=== PATIENT | male | born 1965 | race Caucasian/White ===

== ENCOUNTER 2018-06-02 18:44 | Emergency (ER) | payer OTHER ==
--- NOTE | 2018-06-02 19:23 | PDOC ---
Rapid Medical Evaluation Chief Complaint: Burn Time Seen by Provider: 06/02/18 19:21 Medical Evaluation: Allergies Allergy/AdvReac Type Severity Reaction Status Date / Time No Known Allergies Allergy Verified 01/18/15 09:09 06/02/18 19:21 Pt presents for a burn to R wrist which happened yesterday. Pt placed Silvadine on the wound. Is requesting the area be cleaned. No history of diabetes. Exam: Raw skin to R wrist approximately the size of a silver dollar; most likely corresponding with a second degree burn Orders: Nothing Pt to proceed to the ED for further evaluation Discharge Disposition - Diagnosis Burn - Referrals Referrals: Santo Juarez MD [Primary Care Provider] - - Patient Instructions - Post Discharge Activity
[2018-06-02 19:25] VITALS: BP 162/84; PULSE 76; TEMP 97.6; BMI 28.7
--- NOTE | 2018-06-02 20:16 | PDOC ---
History of Present Illness - General Chief Complaint: Burn Stated Complaint: BURN HAND Time Seen by Provider: 06/02/18 19:21 - History of Present Illness Initial Comments: 06/02/18 20:11 53-year-old male resents requesting clean and debridement of a burn on his right wrist which occurred yesterday he brings his own Silvadene. Past History - Past Medical History Allergies/Adverse Reactions: Allergies Allergy/AdvReac Type Severity Reaction Status Date / Time No Known Allergies Allergy Verified 06/02/18 19:26 Home Medications: Ambulatory Orders Aspirin 81 mg PO ASDIR 06/02/18 Atorvastatin Ca [Lipitor] 40 mg PO HS 06/02/18 Hydrochlorothiazide 12.5 mg PO ASDIR 06/02/18 Metoprolol Succinate 25 mg PO ASDIR 06/02/18 Cardiac Disorders: Yes COPD: No HTN: Yes Hypercholesterolemia: Yes - Suicide/Smoking/Psychosocial Hx Smoking History: Current every day smoker Have you smoked in the past 12 months: Yes Number of Cigarettes Smoked Daily: 20 Information on smoking cessation initiated: No Hx Alcohol Use: No Drug/Substance Use Hx: No Review of Systems - Review of Systems Integumentary: Yes: See HPI *Physical Exam - Vital Signs Last Vital Signs Temp Pulse Resp BP Pulse Ox 97.6 F 76 18 162/84 98 06/02/18 19:23 06/02/18 19:23 06/02/18 19:23 06/02/18 19:23 06/02/18 19:23 - Physical Exam Comments: 06/02/18 20:17 Right hand has second-degree villatoro about the dorsum of the wrist no eschar has been formed no indication of secondary infection Moderate Sedation - Procedure Monitoring Vital Signs: Procedure Monitoring Vital Signs Temperature 97.6 F 06/02/18 19:23 Pulse Rate 76 06/02/18 19:23 Respiratory Rate 18 06/02/18 19:23 Blood Pressure 162/84 06/02/18 19:23 O2 Sat by Pulse Oximetry (%) 98 06/02/18 19:23 Medical Decision Making - Medical Decision Making 06/02/18 20:17 Villatoro were cleaned with chlorhexidine Silvadene was applied as well as dry sterile dressing *DC/Admit/Observation/Transfer Diagnosis at time of Disposition: Burn, Encounter for wound care - Discharge Dispostion Disposition: HOME Condition at time of disposition: Stable Decision to Admit order: No - Referrals Referrals: Santo Juarez MD [Primary Care Provider] - - Patient Instructions Printed Discharge Instructions: How to Take Care of a Burn, DI for Villatoro - Post Discharge Activity
== END 2018-06-02 20:24 | disposition home or self-care (01) ==
LOC: JERFT 18:44
PROC: 2W2CX4Z Dressing of Right Lower Arm using Bandage (ICD-10-PCS; principal; 2018-06-02)
DX: T23.271A Burn of second degree of right wrist, initial encounter (principal); T31.0 Burns involving less than 10% of body surface; X08.8XXA Exposure to other specified smoke, fire and flames, initial encounter; Y93.9 Activity, unspecified; Y92.9 Unspecified place or not applicable; Y99.9 Unspecified external cause status; I10 Essential (primary) hypertension; E78.00 Pure hypercholesterolemia, unspecified
CPT/HCPCS: 16030; 99281-25